=== PATIENT | female | born 1975 | race Caucasian/White ===

== ENCOUNTER 2018-01-03 10:46 | Emergency (ER) | payer BC, OTHER ==
[~2018-01-03] VITALS: Ht 165.1 cm; Wt 79.4 kg
[2018-01-03 10:46] VITALS: BP_SYST 138
[2018-01-03] MEDS ORDERED: methylPREDNISolone SOD SUCC/PF 62.5 MG/ML VIAL IM ONE (11:00)
[2018-01-03] MEDS ORDERED: DIPHENHYDRAMINE INJ 50 MG/ML VIAL IM ONE (11:00)
[2018-01-03 11:16] VITALS: BP_SYST 138
== END 2018-01-03 11:15 | disposition home or self-care (01) ==
LOC: SED 10:46
DX: L20.9 Atopic dermatitis, unspecified (principal)
CPT/HCPCS: 96372; 99284; J1200; J2930